=== PATIENT | male | born 1935 | race African-American/Black ===

== ENCOUNTER → 2017-12-13 | Outpatient (CLI) | payer MEDICARE, OTHER ==
--- NOTE | 2017-12-13 11:32 | Diagnostic Imaging Report ---
PROCEDURE: Frontal and lateral views of the chest. COMPARISON: 08/06/15 INDICATIONS: COUGH, BLOOD IN PHLEGM FINDINGS: Lines/tubes: None. Lungs: The lungs are well inflated and clear. There is no evidence of pneumonia or pulmonary edema. Unchanged elevated left hemidiaphragm. Pleura: There is no pleural effusion or pneumothorax. Heart and mediastinum: The cardiac silhouette is normal. Unchanged widening of mediastinal silhouette. Bones: No acute bony abnormality. Degenerative changes of thoracic spine. IMPRESSION: No acute cardiopulmonary disease. No change from prior exam. Unchanged elevation of left hemidiaphragm and widening of the mediastinum. Dictated by: Giuseppe Hernandez M.D. on 12/13/2017 at 11:42 Electronically approved by: Giuseppe Hernandez M.D. on 12/13/2017 at 11:42
== END ==
LOC: RAD 09:08
PROVIDERS: ATTEND Family Medicine
DX: R04.2 Hemoptysis (principal)
CPT/HCPCS: 71046

== ENCOUNTER 2022-12-05 10:48 | Outpatient (RCR) | payer MEDICARE, OTHER | END 2022-12-06 | LOC: PT 10:48 | PROVIDERS: ATTEND Specialist | DX: M16.0 Bilateral primary osteoarthritis of hip (principal); M47.816 Spondylosis without myelopathy or radiculopathy, lumbar region ==

== ENCOUNTER 2022-12-16 10:00 | Outpatient (RCR) | payer MEDICARE, OTHER | END 2023-01-03 | LOC: PT 10:00 | PROVIDERS: ATTEND Specialist | DX: M16.0 Bilateral primary osteoarthritis of hip (principal) ==